=== PATIENT | male | born 1950 | race Native Hawaiian/Other Pacific Islander ===

== ENCOUNTER → 2016-12-25 | Outpatient (CLI) | payer MEDICARE | END | disposition home or self-care (01) | LOC: RADMN 13:27 | PROVIDERS: ATTEND Physical Medicine & Rehabilitation Spinal Cord Injury Medicine | DX: M17.12 Unilateral primary osteoarthritis, left knee (principal); M76.892 Other specified enthesopathies of left lower limb, excluding foot | CPT/HCPCS: 73721 ==